=== PATIENT | female | born 1980 | race African-American/Black ===

== ENCOUNTER 2016-10-05 17:57 | Emergency (ER) | payer BC ==
[2016-10-05] MEDS ORDERED: KETOROLAC 30 MG/ML VIAL (J1885) As Ordered ONE (18:37)
[2016-10-05 19:12] LABS: BASO % 0.5 % (0.0-1.0); EOS # 0.2 K/mm3 (0.0-0.50); EOS % 3.2 % (0.0-3.0); LARGE UNSTAINED CELL # 0.1 K/mm3 (0.0-0.4); LARGE UNSTAINED CELL % 1.9 % (0.0-4.0); LYMPH # 2.5 K/mm3 (1.5-4.5); LYMPH % 33.5 % (24.0-44.0); MEAN CORPUSCULAR HEMOGLOBIN 27.2 pg (27.0-33.0); MEAN CORPUSCULAR HGB CONC 32.7 g/dl (32.0-36.5); MEAN CORPUSCULAR VOLUME 83.1 fl (80.0-96.0); MONO # 0.3 K/mm3 (0.0-0.8); MONO % 4.3 % (0.0-5.0); NEUTROPHILS # 4.3 K/mm3 (1.8-7.7); NEUTROPHILS % 56.5 % (36.0-66.0); PLATELET COUNT, AUTOMATED 278 k/mm3 (150-450); RED CELL DISTRIBUTION WIDTH 14.8 % (11.5-14.5); WHITE BLOOD COUNT 7.5 K/mm3 (4.0-10.0)
[2016-10-05 19:36] LABS: ALBUMIN 3.3 GM/DL (3.2-5.2); ALBUMIN/GLOBULIN RATIO 0.77 (1.00-1.93); ALKALINE PHOSPHATASE 108 U/L (45-117); ALT/SGPT 17 U/L (12-78); ANION GAP 10 MEQ/L (8-16); AST/SGOT 14 U/L (15-37); BILIRUBIN,DIRECT < 0.1 MG/DL (0.0-0.2); BILIRUBIN,TOTAL 0.2 MG/DL (0.2-1.0); BLOOD UREA NITROGEN 8 MG/DL (7-18); CALCIUM LEVEL 8.6 MG/DL (8.5-10.1); CARBON DIOXIDE LEVEL 25 MEQ/L (21-32); CHLORIDE LEVEL 108 MEQ/L (98-107); CREATININE FOR GFR 1.13 MG/DL (0.55-1.02); GLOMERULAR FILTRATION RATE > 60.0 (>60); GLUCOSE, FASTING 111 MG/DL (70-105); SODIUM LEVEL 143 MEQ/L (136-145); TOTAL PROTEIN 7.6 GM/DL (6.4-8.2)
[2016-10-05 19:36] LABS: MICROSCOPIC INDICATED? MAN YES (NO)
[2016-10-05 19:46] LABS: BACTERIA, URINE SMALL AMOUNT; HYALINE CAST, URINE NONE SEEN /lpf (0-1); MICROSCOPIC EXAM PERFORMED; RBC, URINE TNTC /hpf (0-3); SQUAMOUS EPITHELIAL CELL URINE SMALL AMOUNT /hpf (SMALL AMT)
[2016-10-05] MEDS ORDERED: diphenhydrAMINE INJ 50MG/ML VIAL (J1200) As Ordered ONE (20:26)
[2016-10-05] MEDS ORDERED: HYDROmorphone HCL 1 MG/ML SYRINGE (J1170) As Ordered ONE (20:26)
--- NOTE | 2016-10-05 20:30 | REPUSA ---
CLINICAL HISTORY: Vaginal bleeding. TECHNIQUE: High resolution examination consisting of transabdominal and transvaginal ultrasound perf ormed. FINDINGS: Uterine size: 8.0 x 4.6 x 4.6. AP endometrial thickness is 5.5 mm. Uterus is anteverted. Right ovary measures 4.0 x 2.5 x 3.1 cm. Left ovary measures 3.0 x 1.6 x 2.1 cm. No evidence of ovar ericka or adnexal mass. Trace free fluid is noted in cul-de-sac. IMPRESSION: No acute pathology. Thank you for your kind referral of this patient. We appreciate the opportunity to participate in thi s patient's care.
[2016-10-05] MEDS ORDERED: ONDANSETRON 4MG/2ML VIAL (J2405) As Ordered ONE (20:49)
--- NOTE | 2016-10-05 21:15 | EDDOCDS ---
Physician Documentation [facility] Name: Radha Sotelo Age: 36 yrs Sex: Female : 1980 Arrival Date: 10/05/2016 Time: 17:57 Bed I2 / M2 Private MD: NO PRIMARY PHYSICIAN, . Disposition: 10/05/16 20:54 Discharged to Home/Self Care. Impression: Abnormal uterine and vaginal bleeding, unspecified. - Condition is Stable. - Discharge Instructions: Abnormal Uterine Bleeding. - Prescriptions for Ibuprofen 800 mg Oral Tablet - take 1 tablet by ORAL route every 8 hours As needed take with food; 30 tablet. - Medication Reconciliation, Local Pharmacy Hours form. - Follow up: Emergency Department; When: As needed; Reason: Worsening of conditions. Follow up: Miladis Vasquez MD; When: Call to arrange an appointment; Reason: Wound/Symptom Recheck, Recheck today's complaints, Worsening of conditions, Continuance of care, To establish care. - Problem is new. - Symptoms have improved. Historical: - Allergies: no known allergies; - PMHx: latent TB; - PSHx: none; - Social history: Smoking status: Patient/guardian denies using No barriers to communication noted, The patient speaks fluent Ugandan. - Family history: Not pertinent. - : The pt / caregiver states he / she is not on anticoagulants. Unable to Verify Home Med List with the patient / caregiver. - Exposure Risk Screening:: None identified. 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 (160.02 cm) (R); Pain 10/10; 20:08 BP 107 / 63 LA Supine (auto/reg); cln 20:45 Pain 2/10; kmg1 21:06 BP 103 / 52 LA Supine (auto/reg); Pulse 85 MON; Resp 20 S; Temp 96.8(O); Pulse Ox 95% cln on R/A; Pain 10/10; 17:59 Body Mass Index 40.74 (104.33 kg, 160.02 cm) gr2 MDM: 18:26 NS 0.9% 1000 ml IV at bolus once ordered. cc10 18:26 ketorolac 30 mg IVP once ordered. cc10 18:26 IV Saline Lock ordered. cc10 18:26 Undress patient appropriately for examination ordered. cc10 18:26 UCG by Nursing ordered. cc10 18:27 Basic Metabolic Profile Ordered. EDMS 18:27 CBC with Diff Ordered. EDMS 18:27 Lipase Ordered. EDMS 18:27 Liver Profile Ordered. EDMS 18:27 Urine Culture Ordered. EDMS 18:27 -US Pelvic Non-Ob Complete Ordered. EDMS 18:27 DUPLEX SCAN LIMITED (DOPPLER)+US Ordered. EDMS 18:27 NOTHING BY MOUTH+DIET ordered. EDMS 18:29 Hcg, Serum Quantitative Ordered. EDMS 18:54 Financial registration complete. ks16 18:54 [facility] Payment Agreement was scanned into [employer] and attached to record. ks16 19:27 URINALYSIS MANUAL Ordered. EDMS 19:39 Basic Metabolic Profile Reviewed. cc10 19:39 CBC with Diff Reviewed. cc10 19:39 Liver Profile Reviewed. cc10 19:39 URINALYSIS MANUAL Reviewed. cc10 19:39 Lipase Reviewed. cc10 19:39 Hcg, Serum Quantitative Reviewed. cc10 19:51 Transvaginal NON- US Ordered. EDMS 20:17 Dilaudid - HYDROmorphone 0.5 mg IVP once ordered. cc10 20:17 diphenhydrAMINE 25 mg IVP once ordered. cc10 20:42 URINALYSIS MANUAL Reviewed. cc10 20:42 MICROSCOPIC, URINE Reviewed. cc10 20:46 Ondansetron 4 mg IVP once ordered. cc10 Point of Care Testing: Urine : 18:47 hCG Reading: Negative; Control Reading: Positive; jmv Ranges: Administered Medications: 18:56 Drug: NS 0.9% 1000 ml [sodium chloride 0.9 % intravenous solution] Route: IV; Rate: jo3 bolus; Site: right hand; 18:56 Drug: ketorolac 30 mg [ketorolac 30 mg/mL (1 mL) injection solution (1 mL)] Route: IVP; jo3 Site: right hand; 20:07 Follow up: Response: Pain is decreased jo3 20:33 Drug: Dilaudid - HYDROmorphone 0.5 mg [hydromorphone 1 mg/mL injection syringe (0.5 kmg1 mL)] Route: IVP; Site: left hand; 20:45 Follow up: Pain 2/10 Adult; Response: Pain is decreased [facility] [place] [place] 20:33 Drug: diphenhydrAMINE 25 mg [diphenhydramine 50 mg/mL injection solution (0.5 mL)] [facility] [place] Route: IVP; Site: left hand; 20:51 Drug: Ondansetron 4 mg [ondansetron HCl 2 mg/mL intravenous solution (2 mL)] Route: kmg1 IVP; Site: right hand; 21:13 Follow up: Response: Nausea is decreased [facility] Signatures: Dispatcher [employer] EDMS Ana Villarreal RN RN kmg1 Deanne Palmer RN RN dls Naomie Napier RN RN jo3 Jamal Glover, PA-C PA-C cc10 Vanita Orosco, Reg Reg ks16 The chart was reviewed and I authenticate all verbal orders and agree with the evaluation and treatment provided.Corrections: (The following items were deleted from the chart) 19:27 18:27 URINALYSIS+LAB ordered. EDMS EDMS Attachments: 18:54 [facility] Payment Agreement [email or web address] MTDD
--- NOTE | 2016-10-05 21:16 | EDDOCDS ---
Nurse's Notes [facility] Name: Radha Sotelo Age: 36 yrs Sex: Female : 1980 Arrival Date: 10/05/2016 Time: 17:57 Bed I2 / M2 Private MD: NO PRIMARY PHYSICIAN, . Diagnosis: Abnormal uterine and vaginal bleeding, unspecified Presentation: 10/05 18:06 Presenting complaint: Patient states: Pt presents with c/o 2nd period this month heavy dls vaginal bleeding with clots feels dizzy having a lot of abdominal pain. Risk factors: The patient reports no loss of conciousness prior to arrival. This patient has not had a hysterectomy. This patient has not begun menopause. Adult Sepsis Screening: The patient does not have new or worsening altered mentation. Patient's respiratory rate is less than 22. Systolic blood pressure is greater than 100. Patient has a qSOFA score of 0- Negative Sepsis Screen. Suicide/Homicide risk assessment- the patient denies having any suicidal and/or homicidal ideations and does not present with any other emotional, behavioral or mental health complaints. Status: Patient is not a account manager forest service or dependent. Transition of care: patient was not received from another setting of care. 18:06 Acuity: CASSIE Level 3 dls 18:06 Method Of Arrival: Wheelchair dls Triage Assessment: 18:09 General: Appears uncomfortable, well developed, Behavior is cooperative. Pain: Pain dls currently is 10 out of 10 on a pain scale. HIV screening NA for this visit Offered previously. : Reports vaginal bleeding that is bright red with clots heavy flow. 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 - Family history: Not pertinent. - : The pt / caregiver states he / she is not on anticoagulants. Unable to Verify Home Med List with the patient / caregiver. - Exposure Risk Screening:: None identified. Screenin:57 Screening information is obtained from the patient. Fall risk: No risks identified. jo3 Assistance ADL's: requires no assistance with activities of daily living. Abuse/DV Screen: The patient / caregiver reports he/she is: not in a situation that causes fear, pain or injury. Nutritional screening: No deficits noted. Advance Directives: There is no active DNR order. home support is adequate. Assessment: 18:57 General: Appears uncomfortable, Behavior is appropriate for age, cooperative. jo3 Neurological: Level of Consciousness is awake, alert, Oriented to person, place, time, Reports dizziness. EENT: No deficits noted. Cardiovascular: No deficits noted. Respiratory: Airway is patent Respiratory effort is even, unlabored. GI: Abdomen is obese, Bowel sounds present X 4 quads. Abd is soft X 4 quads Abd is tender to palpation in suprapubic area, right lower quadrant and left lower quadrant Reports cramping. : Urine is blood tinged, Reports vaginal bleeding that is with clots heavy flow. Derm: Skin is intact, Skin is dry, Skin is normal, Skin temperature is warm. 19:30 Reassessment: Pt taken to ultrasound at this time . jo3 19:30 Cardiovascular: No deficits noted. jo3 20:08 General: Pt reports that pain is decreased at this time. Awaiting results. Aware of jo3 plan of care . General: Appears in no apparent distress, comfortable, Behavior is appropriate for age, cooperative, pleasant. Neurological: No deficits noted. Level of Consciousness is awake, alert, Oriented to person, place, time. Respiratory: Airway is patent Respiratory effort is even, unlabored. 20:34 Pain: Pain currently is 10 out of 10 on a pain scale. kmg1 21:10 Reassessment: Patient appears in no apparent distress at this time. Patient states kmg1 feeling better. Patient states symptoms have improved. Vital Signs: 17:59 BP 151 / 115; Pulse 108; Resp 20 S; Temp 97.8(O); Pulse Ox 100% on R/A; Weight 104.33 gr2 kg (R); Height 63 in. (160.02 cm) (R); Pain 10/10; 20:08 BP 107 / 63 LA Supine (auto/reg); cln 20:45 Pain 2/10; kmg1 21:06 BP 103 / 52 LA Supine (auto/reg); Pulse 85 MON; Resp 20 S; Temp 96.8(O); Pulse Ox 95% cln on R/A; Pain 10/10; 17:59 Body Mass Index 40.74 (104.33 kg, 160.02 cm) gr2 Vitals: 17:59 Log In Time: October 05, 2016 at 17:59. gr2 ED Course: 17:59 Patient visited by Cary Lee. gr2 17:59 NO PRIMARY PHYSICIAN, . is Private Physician. gr2 17:59 Patient moved to Waiting gr2 18:00 Patient visited by Cary Lee. gr2 18:01 Jamal Glover PA-C is PHCP. cc10 18:01 Brisa Barbosa MD is Attending Physician. cc10 18:01 Patient moved to Pre RCE gr2 18:05 Patient moved to Triage 1 dem1 18:06 Patient visited by Jamal Glover PA-C. cc10 18:06 Patient visited by Jamal Glover PA-C. cc10 18:08 Triage Initiated dls 18:24 Patient moved to I2 / M2 js13 18:35 Patient moved to Ultrasound br3 18:44 Patient moved to I2 / M2 br3 18:48 Patient visited by Surya Harris PCA. [facility] 18:54 [facility] Payment Agreement was scanned into [employer] and attached to record. ks16 18:56 Hcg, Serum Quantitative Sent. jo3 18:56 Basic Metabolic Profile Sent. jo3 18:56 CBC with Diff Sent. jo3 18:56 Lipase Sent. jo3 18:56 Liver Profile Sent. jo3 18:57 The patient / caregiver is instructed regarding the plan of care and ED course. jo3 18:57 Inserted saline lock: 20 gauge in right hand. Labs drawn. (by ED staff). Sent per order jo3 to lab. 19:00 Patient visited by Naomie Napier RN. jo3 20:02 Patient visited by Naomie Napier,ROMINA. jo3 20:06 Patient visited by Naomie Napier,ROMINA. jo3 20:08 Patient visited by Di Hernandez PCA. cln 20:10 Patient visited by Naomie Napier,ROMINA. jo3 20:34 Patient visited by Ana Villarreal, ROMINA. kmg1 20:44 -US Pelvic Non-Ob Complete Returned. EDMS 20:54 Miladis Vasquez MD is Referral Physician. cc10 21:07 Patient visited by Hernandez, Crystal, DEMOLITION SPECIALIST. cln 21:10 Discontinued lock bleeding controlled, pressure dressing applied, No redness/swelling km at site. 21:15 Patient visited by Ana Villarreal RN. [facility] 21:15 No procedures done that require assistance. [facility] Administered Medications: 18:56 Drug: NS 0.9% 1000 ml [sodium chloride 0.9 % intravenous solution] Route: IV; Rate: jo3 bolus; Site: right hand; 18:56 Drug: ketorolac 30 mg [ketorolac 30 mg/mL (1 mL) injection solution (1 mL)] Route: IVP; jo3 Site: right hand; 20:07 Follow up: Response: Pain is decreased jo3 20:33 Drug: Dilaudid - HYDROmorphone 0.5 mg [hydromorphone 1 mg/mL injection syringe (0.5 kmg1 mL)] Route: IVP; Site: left hand; 20:45 Follow up: Pain 2/10 Adult; Response: Pain is decreased [facility] 20:33 Drug: diphenhydrAMINE 25 mg [diphenhydramine 50 mg/mL injection solution (0.5 mL)] [facility] Route: IVP; Site: left hand; 20:51 Drug: Ondansetron 4 mg [ondansetron HCl 2 mg/mL intravenous solution (2 mL)] Route: kmg1 IVP; Site: right hand; 21:13 Follow up: Response: Nausea is decreased [facility] Point of Care Testing: Urine : 18:47 hCG Reading: Negative; Control Reading: Positive; v Ranges: Order Results: Lab Order: Basic Metabolic Profile; SPEC'M 10/05/16 18:38 Test: GLUCOSE, FASTING; Value: 111; Range: 70-105; Abnormal: Above high normal; Units: MG/DL; Status: F Test: BLOOD UREA NITROGEN; Value: 8; Range: 7-18; Units: MG/DL; Status: F Test: CREATININE FOR GFR; Value: 1.13; Range: 0.55-1.02; Abnormal: Above high normal; Units: MG/DL; Status: F Test: GLOMERULAR FILTRATION RATE; Value: > 60.0; Range: >60; Status: F Test: SODIUM LEVEL; Value: 143; Range: 136-145; Units: MEQ/L; Status: F Test: POTASSIUM SERUM; Value: 4.0; Range: 3.5-5.1; Units: MEQ/L; Status: F Test: CHLORIDE LEVEL; Value: 108; Range: 98-107; Abnormal: Above high normal; Units: MEQ/L; Status: F Test: CARBON DIOXIDE LEVEL; Value: 25; Range: 21-32; Units: MEQ/L; Status: F Test: ANION GAP; Value: 10; Range: 8-16; Units: MEQ/L; Status: F Test: CALCIUM LEVEL; Value: 8.6; Range: 8.5-10.1; Units: MG/DL; Status: F Test Note: ; Units are mL/min/1.73 m2 Chronic Kidney Disease Staging per NKF: Stage I & II GFR >=60 Normal to Mildly Decreased Stage III GFR 30-59 Moderately Decreased Stage IV GFR 15-29 Severely Decreased Stage V GFR <15 Very Little GFR Left ESRD GFR <15 on BEEHIVE KILN SUPERVISOR Lab Order: CBC with Diff; SPEC'M 10/05/16 18:38 Test: WHITE BLOOD COUNT; Value: 7.5; Range: 4.0-10.0; Units: K/mm3; Status: F Test: RED BLOOD COUNT; Value: 3.94; Range: 4.00-5.40; Abnormal: Below low normal; Units: M/mm3; Status: F Test: HEMOGLOBIN; Value: 10.7; Range: 12.0-16.0; Abnormal: Below low normal; Units: g/dl; Status: F Test: HEMATOCRIT; Value: 32.7; Range: 36.0-47.0; Abnormal: Below low normal; Units: %; Status: F Test: MEAN CORPUSCULAR VOLUME; Value: 83.1; Range: 80.0-96.0; Units: fl; Status: F Test: MEAN CORPUSCULAR HEMOGLOBIN; Value: 27.2; Range: 27.0-33.0; Units: pg; Status: F Test: MEAN CORPUSCULAR HGB CONC; Value: 32.7; Range: 32.0-36.5; Units: g/dl; Status: F Test: RED CELL DISTRIBUTION WIDTH; Value: 14.8; Range: 11.5-14.5; Abnormal: Above high normal; Units: %; Status: F Test: PLATELET COUNT, AUTOMATED; Value: 278; Range: 150-450; Units: k/mm3; Status: F Test: NEUTROPHILS %; Value: 56.5; Range: 36.0-66.0; Units: %; Status: F Test: LYMPH %; Value: 33.5; Range: 24.0-44.0; Units: %; Status: F Test: MONO %; Value: 4.3; Range: 0.0-5.0; Units: %; Status: F Test: EOS %; Value: 3.2; Range: 0.0-3.0; Abnormal: Above high normal; Units: %; Status: F Test: BASO %; Value: 0.5; Range: 0.0-1.0; Units: %; Status: F Test: LARGE UNSTAINED CELL %; Value: 1.9; Range: 0.0-4.0; Units: %; Status: F Test: NEUTROPHILS #; Value: 4.3; Range: 1.8-7.7; Units: K/mm3; Status: F Test: LYMPH #; Value: 2.5; Range: 1.5-4.5; Units: K/mm3; Status: F Test: MONO #; Value: 0.3; Range: 0.0-0.8; Units: K/mm3; Status: F Test: EOS #; Value: 0.2; Range: 0.0-0.50; Units: K/mm3; Status: F Test: BASO #; Value: 0.0; Range: 0.0-0.2; Units: K/mm3; Status: F Test: LARGE UNSTAINED CELL #; Value: 0.1; Range: 0.0-0.4; Units: K/mm3; Status: F Lab Order: Lipase; SPEC'M 10/05/16 18:38 Test: LIPASE; Value: 79; Range: 73-393; Units: U/L; Status: F Lab Order: Liver Profile; SPEC'M 10/05/16 18:38 Test: AST/SGOT; Value: 14; Range: 15-37; Abnormal: Below low normal; Units: U/L; Status: F Test: ALT/SGPT; Value: 17; Range: 12-78; Units: U/L; Status: F Test: ALKALINE PHOSPHATASE; Value: 108; Range: 45-117; Units: U/L; Status: F Test: BILIRUBIN,TOTAL; Value: 0.2; Range: 0.2-1.0; Units: MG/DL; Status: F Test: BILIRUBIN,DIRECT; Value: < 0.1; Range: 0.0-0.2; Units: MG/DL; Status: F Test: TOTAL PROTEIN; Value: 7.6; Range: 6.4-8.2; Units: GM/DL; Status: F Test: ALBUMIN; Value: 3.3; Range: 3.2-5.2; Units: GM/DL; Status: F Test: ALBUMIN/GLOBULIN RATIO; Value: 0.77; Range: 1.00-1.93; Abnormal: Below low normal; Status: F Lab Order: Hcg, Serum Quantitative; SPEC'M 10/05/16 18:38 Test: HCG, SERUM QUANTITATIVE; Value: < 1.0; Units: MIU/ML; Status: F Test Note: ; GESTATIONAL AGE APPROXIMATE HCG RANGE (MIU/ML) 0.2-1 WEEK 5-50 1-2 WEEKS 50-500 2-3 WEEKS 100-5,000 3-4 WEEKS 500-10,000 4-5 WEEKS 1,000-50,000 5-6 WEEKS 10,000-100,000 6-8 WEEKS 15,000-200,000 2-3 MONTHS 10,000-100,000 NON FEMALES LESS THAN 3.0 Patient samples may contain human heterophilic antibodies that could react with immunoassays to give falsely elevated or depressed results. This assay has been designed to minimize interference from heterophilic antibodies. Elevated hCG levels have also been associated with trophoblastic disease and nontrophoblastic neoplasms. The possibility of having these diseases should be considered before a diagnosis of is made. This test is not intended for use as a surrogate marker for aiding in the diagnosis or monitoring the treatment of cancer patients. [employer] methodology. Lab Order: URINALYSIS MANUAL; SPEC'M 10/05/16 19:17 Test: APPEARANCE, URINE MANUAL; Value: TURBID; Range: CLEAR; Abnormal: Above high normal; Status: F Test: COLOR, URINE MANUAL; Value: RED; Range: YELLOW; Abnormal: Above high normal; Status: F Test: PH,URINE MAN; Value: 6.0; Range: 5.0 - 9.0; Units: UNITS; Status: F Test: SPECIFIC GRAVITY,URINE MANUAL; Value: 1.015; Range: 1.002-1.035; Status: F Test: PROTEIN, URINE MANUAL; Value: 2+; Range: NEGATIVE; Abnormal: Above high normal; Units: mg/dL; Status: F Test: GLUCOSE, URINE (UA) MANUAL; Value: NEGATIVE; Range: NEGATIVE; Units: mg/dL; Status: F Test: KETONE, URINE MANUAL; Value: NEGATIVE; Range: NEGATIVE; Units: mg/dL; Status: F Test: UROBILINOGEN, URINE MANUAL; Value: NORMAL; Range: NORMAL; Units: mg/dl; Status: F Test: BILIRUBIN, URINE MANUAL; Value: NEGATIVE; Range: NEGATIVE; Status: F Test: NITRITE, URINE MANUAL; Value: NEGATIVE; Range: NEGATIVE; Status: F Test: LEUKOCYTE ESTERASE, URINE MAN; Value: POSITIVE; Range: NEGATIVE; Abnormal: Above high normal; Status: F Test: BLOOD URINE MANUAL; Value: POSITIVE; Range: NEGATIVE; Abnormal: Above high normal; Status: F Lab Order: MICROSCOPIC, URINE; SPEC'M 10/05/16 19:17 Test: WBC, URINE; Value: 5-7; Range: 0-3; Abnormal: Above high normal; Units: /hpf; Status: F Test: RBC, URINE; Value: TNTC; Range: 0-3; Abnormal: Above high normal; Units: /hpf; Status: F Test: SQUAMOUS EPITHELIAL CELL URINE; Value: SMALL AMOUNT; Range: SMALL AMT; Units: /hpf; Status: F Test: BACTERIA, URINE; Value: SMALL AMOUNT; Range: NONE; Abnormal: Above high normal; Status: F Test: HYALINE CAST, URINE; Value: NONE SEEN; Range: 0-1; Units: /lpf; Status: F Test: MICROSCOPIC EXAM; Value: PERFORMED; Status: F Radiology Order: -US Pelvic Non-Ob Complete Test: -US Pelvic Non-Ob Complete REASON FOR EXAMINATION: Vaginal Bleeding - Nn-; ; CLINICAL HISTORY: Vaginal bleeding.; ; TECHNIQUE: High resolution examination consisting of transabdominal and transvaginal ultrasound perf; ormed.; ; FINDINGS:; Uterine size: 8.0 x 4.6 x 4.6. AP endometrial thickness is 5.5 mm. Uterus is anteverted.; ; Right ovary measures 4.0 x 2.5 x 3.1 cm. Left ovary measures 3.0 x 1.6 x 2.1 cm. No evidence of ovar; ericka or adnexal mass.; ; Trace free fluid is noted in cul-de-sac.; ; IMPRESSION:; No acute pathology.; ; ; Thank you for your kind referral of this patient. We appreciate the opportunity to participate in thi; s patient's care.; ; Outcome: 20:54 Discharge ordered by Provider. cc10 21:10 Discharge Assessment: Patient awake, alert and oriented x 3. No cognitive and/or kmg1 functional deficits noted. Patient verbalized understanding of disposition instructions. patient administered narcotics - yes. Pt provided with safe discharge. The following High Risk Discharge criteria are identified: None. Discharged to home ambulatory, with friend. Condition: stable. Discharge instructions given to patient, friend, Instructed on discharge instructions, follow up and referral plans. medication usage, Demonstrated understanding of instructions, medications, Pt was receptive of discharge instructions/ teaching. Prescriptions given X 1. Ultrasound Study completed. Property sent home with patient. 21:15 Patient left the ED. kmg1 Signatures: Dispatcher [employer] EDMS Ana Villarreal RN RN kmg1 Deanne Plamer RN RN dls Helmerci, Jennifer, RN RN jo3 Susan Lee3 Jian Spencer1 Naomie Olivarez,ROMINA RN js13 Cary Lee2 Jamal Glover, PA-Stew PA-C cc10 Vanita Orosco, Reg Reg ks16 Di Hernandez, DEMOLITION SPECIALIST DEMOLITION SPECIALIST Surya Duffy, DEMOLITION SPECIALIST DEMOLITION SPECIALIST jmv Corrections: (The following items were deleted from the chart) 20:09 19:58 Reassessment: Pt taken to ultrasound at this time . jo3 jo3 20:10 20:08 General: Appears in no apparent distress, comfortable, Behavior is appropriate jo3 for age, cooperative, pleasant, jo3 20:10 19:30 Neurological: No deficits noted. Level of Consciousness is awake, alert, Oriented jo3 to person, place, time, jo3 : 19:30 Respiratory: Airway is patent Respiratory effort is even, unlabored, jo3 jo3 : 19:30 General: Pt reports that pain is decreased at this time. Awaiting results. Aware jo3 of plan of care . jo3 MTDD
--- NOTE | 2016-10-08 11:46 | EDDOCDS ---
Nurse's Notes [facility] Name: Radha Sotelo Age: 36 yrs Sex: Female : 1980 Arrival Date: 10/05/2016 Time: 17:57 Bed I2 / M2 Private MD: NO PRIMARY PHYSICIAN, . Diagnosis: Abnormal uterine and vaginal bleeding, unspecified Presentation: 10/05 18:06 Presenting complaint: Patient states: Pt presents with c/o 2nd period this month heavy dls vaginal bleeding with clots feels dizzy having a lot of abdominal pain. Risk factors: The patient reports no loss of conciousness prior to arrival. This patient has not had a hysterectomy. This patient has not begun menopause. Adult Sepsis Screening: The patient does not have new or worsening altered mentation. Patient's respiratory rate is less than 22. Systolic blood pressure is greater than 100. Patient has a qSOFA score of 0- Negative Sepsis Screen. Suicide/Homicide risk assessment- the patient denies having any suicidal and/or homicidal ideations and does not present with any other emotional, behavioral or mental health complaints. Status: Patient is not a service administrator or dependent. Transition of care: patient was not received from another setting of care. 18:06 Acuity: CASSIE Level 3 dls 18:06 Method Of Arrival: Wheelchair dls Triage Assessment: 18:09 General: Appears uncomfortable, well developed, Behavior is cooperative. Pain: Pain dls currently is 10 out of 10 on a pain scale. HIV screening NA for this visit Offered previously. : Reports vaginal bleeding that is bright red with clots heavy flow. 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 - Family history: Not pertinent. - : The pt / caregiver states he / she is not on anticoagulants. Unable to Verify Home Med List with the patient / caregiver. - Exposure Risk Screening:: None identified. Screenin:57 Screening information is obtained from the patient. Fall risk: No risks identified. jo3 Assistance ADL's: requires no assistance with activities of daily living. Abuse/DV Screen: The patient / caregiver reports he/she is: not in a situation that causes fear, pain or injury. Nutritional screening: No deficits noted. Advance Directives: There is no active DNR order. home support is adequate. Assessment: 18:57 General: Appears uncomfortable, Behavior is appropriate for age, cooperative. jo3 Neurological: Level of Consciousness is awake, alert, Oriented to person, place, time, Reports dizziness. EENT: No deficits noted. Cardiovascular: No deficits noted. Respiratory: Airway is patent Respiratory effort is even, unlabored. GI: Abdomen is obese, Bowel sounds present X 4 quads. Abd is soft X 4 quads Abd is tender to palpation in suprapubic area, right lower quadrant and left lower quadrant Reports cramping. : Urine is blood tinged, Reports vaginal bleeding that is with clots heavy flow. Derm: Skin is intact, Skin is dry, Skin is normal, Skin temperature is warm. 19:30 Reassessment: Pt taken to ultrasound at this time . jo3 19:30 Cardiovascular: No deficits noted. jo3 20:08 General: Pt reports that pain is decreased at this time. Awaiting results. Aware of jo3 plan of care . General: Appears in no apparent distress, comfortable, Behavior is appropriate for age, cooperative, pleasant. Neurological: No deficits noted. Level of Consciousness is awake, alert, Oriented to person, place, time. Respiratory: Airway is patent Respiratory effort is even, unlabored. 20:34 Pain: Pain currently is 10 out of 10 on a pain scale. kmg1 21:10 Reassessment: Patient appears in no apparent distress at this time. Patient states kmg1 feeling better. Patient states symptoms have improved. Vital Signs: 17:59 BP 151 / 115; Pulse 108; Resp 20 S; Temp 97.8(O); Pulse Ox 100% on R/A; Weight 104.33 gr2 kg (R); Height 63 in. (160.02 cm) (R); Pain 10/10; 20:08 BP 107 / 63 LA Supine (auto/reg); cln 20:45 Pain 2/10; kmg1 21:06 BP 103 / 52 LA Supine (auto/reg); Pulse 85 MON; Resp 20 S; Temp 96.8(O); Pulse Ox 95% cln on R/A; Pain 10/10; 17:59 Body Mass Index 40.74 (104.33 kg, 160.02 cm) gr2 Vitals: 17:59 Log In Time: October 05, 2016 at 17:59. gr2 ED Course: 17:59 Patient visited by Cary Lee. gr2 17:59 NO PRIMARY PHYSICIAN, . is Private Physician. gr2 17:59 Patient moved to Waiting gr2 18:00 Patient visited by Cary Lee. gr2 18:01 Jamal Glover PA-C is PHCP. cc10 18:01 Brisa Barbosa MD is Attending Physician. cc10 18:01 Patient moved to Pre RCE gr2 18:05 Patient moved to Triage 1 dem1 18:06 Patient visited by Jamal Glover PA-C. cc10 18:06 Patient visited by Jamal Glover PA-C. cc10 18:08 Triage Initiated dls 18:24 Patient moved to I2 / M2 js13 18:35 Patient moved to Ultrasound br3 18:44 Patient moved to I2 / M2 br3 18:48 Patient visited by Surya Harris PCA. [facility] 18:54 [facility] Payment Agreement was scanned into [employer] and attached to record. ks16 18:56 Hcg, Serum Quantitative Sent. jo3 18:56 Basic Metabolic Profile Sent. jo3 18:56 CBC with Diff Sent. jo3 18:56 Lipase Sent. jo3 18:56 Liver Profile Sent. jo3 18:57 The patient / caregiver is instructed regarding the plan of care and ED course. jo3 18:57 Inserted saline lock: 20 gauge in right hand. Labs drawn. (by ED staff). Sent per order jo3 to lab. 19:00 Patient visited by Naomie Napier RN. jo3 20:02 Patient visited by Naomie Napier,ROMINA. jo3 20:06 Patient visited by Naoime Napier,ROMINA. jo3 20:08 Patient visited by Di Hernandez PCA. cln 20:10 Patient visited by Namoie Napier,ROMINA. jo3 20:34 Patient visited by Ana Villarreal, ROMINA. kmg1 20:44 -US Pelvic Non-Ob Complete Returned. EDMS 20:54 Miladis Vasquez MD is Referral Physician. cc10 21:07 Patient visited by Hernandez, Crystal, SPORTING GOODS SALES ASSOCIATE. cln 21:10 Discontinued lock bleeding controlled, pressure dressing applied, No redness/swelling [facility] at site. 21:15 Patient visited by Ana Villarreal RN. [facility] 21:15 No procedures done that require assistance. [facility] 10/06 08:49 T-Sheet-- Draft Copy was scanned into [employer] and attached to record. [facility] Administered Medications: 10/05 18:56 Drug: NS 0.9% 1000 ml [sodium chloride 0.9 % intravenous solution] Route: IV; Rate: jo3 bolus; Site: right hand; 18:56 Drug: ketorolac 30 mg [ketorolac 30 mg/mL (1 mL) injection solution (1 mL)] Route: IVP; jo3 Site: right hand; 20:07 Follow up: Response: Pain is decreased 3 20:33 Drug: Dilaudid - HYDROmorphone 0.5 mg [hydromorphone 1 mg/mL injection syringe (0.5 kmg1 mL)] Route: IVP; Site: left hand; 20:45 Follow up: Pain 2/10 Adult; Response: Pain is decreased [facility] 20:33 Drug: diphenhydrAMINE 25 mg [diphenhydramine 50 mg/mL injection solution (0.5 mL)] [facility] Route: IVP; Site: left hand; 20:51 Drug: Ondansetron 4 mg [ondansetron HCl 2 mg/mL intravenous solution (2 mL)] Route: kmg1 IVP; Site: right hand; 21:13 Follow up: Response: Nausea is decreased [facility] Point of Care Testing: Urine : 18:47 hCG Reading: Negative; Control Reading: Positive; jmv Ranges: Order Results: Lab Order: Basic Metabolic Profile; SPEC'M 10/05/16 18:38 Test: GLUCOSE, FASTING; Value: 111; Range: 70-105; Abnormal: Above high normal; Units: MG/DL; Status: F Test: BLOOD UREA NITROGEN; Value: 8; Range: 7-18; Units: MG/DL; Status: F Test: CREATININE FOR GFR; Value: 1.13; Range: 0.55-1.02; Abnormal: Above high normal; Units: MG/DL; Status: F Test: GLOMERULAR FILTRATION RATE; Value: > 60.0; Range: >60; Status: F Test: SODIUM LEVEL; Value: 143; Range: 136-145; Units: MEQ/L; Status: F Test: POTASSIUM SERUM; Value: 4.0; Range: 3.5-5.1; Units: MEQ/L; Status: F Test: CHLORIDE LEVEL; Value: 108; Range: 98-107; Abnormal: Above high normal; Units: MEQ/L; Status: F Test: CARBON DIOXIDE LEVEL; Value: 25; Range: 21-32; Units: MEQ/L; Status: F Test: ANION GAP; Value: 10; Range: 8-16; Units: MEQ/L; Status: F Test: CALCIUM LEVEL; Value: 8.6; Range: 8.5-10.1; Units: MG/DL; Status: F Test Note: ; Units are mL/min/1.73 m2 Chronic Kidney Disease Staging per NKF: Stage I & II GFR >=60 Normal to Mildly Decreased Stage III GFR 30-59 Moderately Decreased Stage IV GFR 15-29 Severely Decreased Stage V GFR <15 Very Little GFR Left ESRD GFR <[address] MANAGER Lab Order: CBC with Diff; SPEC'M 10/05/16 18:38 Test: WHITE BLOOD COUNT; Value: 7.5; Range: 4.0-10.0; Units: K/mm3; Status: F Test: RED BLOOD COUNT; Value: 3.94; Range: 4.00-5.40; Abnormal: Below low normal; Units: M/mm3; Status: F Test: HEMOGLOBIN; Value: 10.7; Range: 12.0-16.0; Abnormal: Below low normal; Units: g/dl; Status: F Test: HEMATOCRIT; Value: 32.7; Range: 36.0-47.0; Abnormal: Below low normal; Units: %; Status: F Test: MEAN CORPUSCULAR VOLUME; Value: 83.1; Range: 80.0-96.0; Units: fl; Status: F Test: MEAN CORPUSCULAR HEMOGLOBIN; Value: 27.2; Range: 27.0-33.0; Units: pg; Status: F Test: MEAN CORPUSCULAR HGB CONC; Value: 32.7; Range: 32.0-36.5; Units: g/dl; Status: F Test: RED CELL DISTRIBUTION WIDTH; Value: 14.8; Range: 11.5-14.5; Abnormal: Above high normal; Units: %; Status: F Test: PLATELET COUNT, AUTOMATED; Value: 278; Range: 150-450; Units: k/mm3; Status: F Test: NEUTROPHILS %; Value: 56.5; Range: 36.0-66.0; Units: %; Status: F Test: LYMPH %; Value: 33.5; Range: 24.0-44.0; Units: %; Status: F Test: MONO %; Value: 4.3; Range: 0.0-5.0; Units: %; Status: F Test: EOS %; Value: 3.2; Range: 0.0-3.0; Abnormal: Above high normal; Units: %; Status: F Test: BASO %; Value: 0.5; Range: 0.0-1.0; Units: %; Status: F Test: LARGE UNSTAINED CELL %; Value: 1.9; Range: 0.0-4.0; Units: %; Status: F Test: NEUTROPHILS #; Value: 4.3; Range: 1.8-7.7; Units: K/mm3; Status: F Test: LYMPH #; Value: 2.5; Range: 1.5-4.5; Units: K/mm3; Status: F Test: MONO #; Value: 0.3; Range: 0.0-0.8; Units: K/mm3; Status: F Test: EOS #; Value: 0.2; Range: 0.0-0.50; Units: K/mm3; Status: F Test: BASO #; Value: 0.0; Range: 0.0-0.2; Units: K/mm3; Status: F Test: LARGE UNSTAINED CELL #; Value: 0.1; Range: 0.0-0.4; Units: K/mm3; Status: F Lab Order: Lipase; SPEC'M 10/05/16 18:38 Test: LIPASE; Value: 79; Range: 73-393; Units: U/L; Status: F Lab Order: Liver Profile; SPEC'M 10/05/16 18:38 Test: AST/SGOT; Value: 14; Range: 15-37; Abnormal: Below low normal; Units: U/L; Status: F Test: ALT/SGPT; Value: 17; Range: 12-78; Units: U/L; Status: F Test: ALKALINE PHOSPHATASE; Value: 108; Range: 45-117; Units: U/L; Status: F Test: BILIRUBIN,TOTAL; Value: 0.2; Range: 0.2-1.0; Units: MG/DL; Status: F Test: BILIRUBIN,DIRECT; Value: < 0.1; Range: 0.0-0.2; Units: MG/DL; Status: F Test: TOTAL PROTEIN; Value: 7.6; Range: 6.4-8.2; Units: GM/DL; Status: F Test: ALBUMIN; Value: 3.3; Range: 3.2-5.2; Units: GM/DL; Status: F Test: ALBUMIN/GLOBULIN RATIO; Value: 0.77; Range: 1.00-1.93; Abnormal: Below low normal; Status: F Lab Order: Urine Culture; SPEC'M 10/05/16 19:17 Test: URINE CULTURE; Value: URINE CULTURE RESULT NO GROWTH CLINICAL SIGNIFICANCE 1 ORGANISM; Status: F Lab Order: Hcg, Serum Quantitative; SPEC'M 10/05/16 18:38 Test: HCG, SERUM QUANTITATIVE; Value: < 1.0; Units: MIU/ML; Status: F Test Note: ; GESTATIONAL AGE APPROXIMATE HCG RANGE (MIU/ML) 0.2-1 WEEK 5-50 1-2 WEEKS 50-500 2-3 WEEKS 100-5,000 3-4 WEEKS 500-10,000 4-5 WEEKS 1,000-50,000 5-6 WEEKS 10,000-100,000 6-8 WEEKS 15,000-200,000 2-3 MONTHS 10,000-100,000 NON FEMALES LESS THAN 3.0 Patient samples may contain human heterophilic antibodies that could react with immunoassays to give falsely elevated or depressed results. This assay has been designed to minimize interference from heterophilic antibodies. Elevated hCG levels have also been associated with trophoblastic disease and nontrophoblastic neoplasms. The possibility of having these diseases should be considered before a diagnosis of is made. This test is not intended for use as a surrogate marker for aiding in the diagnosis or monitoring the treatment of cancer patients. Gemmyo methodology. Lab Order: URINALYSIS MANUAL; SPEC'M 10/05/16 19:17 Test: APPEARANCE, URINE MANUAL; Value: TURBID; Range: CLEAR; Abnormal: Above high normal; Status: F Test: COLOR, URINE MANUAL; Value: RED; Range: YELLOW; Abnormal: Above high normal; Status: F Test: PH,URINE MAN; Value: 6.0; Range: 5.0 - 9.0; Units: UNITS; Status: F Test: SPECIFIC GRAVITY,URINE MANUAL; Value: 1.015; Range: 1.002-1.035; Status: F Test: PROTEIN, URINE MANUAL; Value: 2+; Range: NEGATIVE; Abnormal: Above high normal; Units: mg/dL; Status: F Test: GLUCOSE, URINE (UA) MANUAL; Value: NEGATIVE; Range: NEGATIVE; Units: mg/dL; Status: F Test: KETONE, URINE MANUAL; Value: NEGATIVE; Range: NEGATIVE; Units: mg/dL; Status: F Test: UROBILINOGEN, URINE MANUAL; Value: NORMAL; Range: NORMAL; Units: mg/dl; Status: F Test: BILIRUBIN, URINE MANUAL; Value: NEGATIVE; Range: NEGATIVE; Status: F Test: NITRITE, URINE MANUAL; Value: NEGATIVE; Range: NEGATIVE; Status: F Test: LEUKOCYTE ESTERASE, URINE MAN; Value: POSITIVE; Range: NEGATIVE; Abnormal: Above high normal; Status: F Test: BLOOD URINE MANUAL; Value: POSITIVE; Range: NEGATIVE; Abnormal: Above high normal; Status: F Lab Order: MICROSCOPIC, URINE; SPEC'M 10/05/16 19:17 Test: WBC, URINE; Value: 5-7; Range: 0-3; Abnormal: Above high normal; Units: /hpf; Status: F Test: RBC, URINE; Value: TNTC; Range: 0-3; Abnormal: Above high normal; Units: /hpf; Status: F Test: SQUAMOUS EPITHELIAL CELL URINE; Value: SMALL AMOUNT; Range: SMALL AMT; Units: /hpf; Status: F Test: BACTERIA, URINE; Value: SMALL AMOUNT; Range: NONE; Abnormal: Above high normal; Status: F Test: HYALINE CAST, URINE; Value: NONE SEEN; Range: 0-1; Units: /lpf; Status: F Test: MICROSCOPIC EXAM; Value: PERFORMED; Status: F Radiology Order: -US Pelvic Non-Ob Complete Test: -US Pelvic Non-Ob Complete REASON FOR EXAMINATION: Vaginal Bleeding - Nn-; ; CLINICAL HISTORY: Vaginal bleeding.; ; TECHNIQUE: High resolution examination consisting of transabdominal and transvaginal ultrasound perf; ormed.; ; FINDINGS:; Uterine size: 8.0 x 4.6 x 4.6. AP endometrial thickness is 5.5 mm. Uterus is anteverted.; ; Right ovary measures 4.0 x 2.5 x 3.1 cm. Left ovary measures 3.0 x 1.6 x 2.1 cm. No evidence of ovar; ericka or adnexal mass.; ; Trace free fluid is noted in cul-de-sac.; ; IMPRESSION:; No acute pathology.; ; ; Thank you for your kind referral of this patient. We appreciate the opportunity to participate in [facility]; s patient's care.; ; Outcome: 20:54 Discharge ordered by Provider. cc10 21:10 Discharge Assessment: Patient awake, alert and oriented x 3. No cognitive and/or kmg1 functional deficits noted. Patient verbalized understanding of disposition instructions. patient administered narcotics - yes. Pt provided with safe discharge. The following High Risk Discharge criteria are identified: None. Discharged to home ambulatory, with friend. Condition: stable. Discharge instructions given to patient, friend, Instructed on discharge instructions, follow up and referral plans. medication usage, Demonstrated understanding of instructions, medications, Pt was receptive of discharge instructions/ teaching. Prescriptions given X 1. Ultrasound Study completed. Property sent home with patient. 21:15 Patient left the ED. kmg1 Signatures: Dispatcher [employer] EDMS Ana Villarreal RN RN kmg1 Deanne Palmer RN RN Naomie Malcolm RN RN Susan Yuen br3 Jian Spencer1 Naomie Olivarez RN RN [id number] Cary Lee2 Jamal Glover, PA-C PA-C cc10 Vanita Orosco, Reg Reg ks16 Di Hernandez, SPORTING GOODS SALES ASSOCIATE SPORTING GOODS SALES ASSOCIATE Francisca Appiah Jose, SPORTING GOODS SALES ASSOCIATE SPORTING GOODS SALES ASSOCIATE jmv Corrections: (The following items were deleted from the chart) 20:09 19:58 Reassessment: Pt taken to ultrasound at this time . jo3 jo3 20:10 20:08 General: Appears in no apparent distress, comfortable, Behavior is appropriate jo3 for age, cooperative, pleasant, jo3 20: 19:30 Neurological: No deficits noted. Level of Consciousness is awake, alert, Oriented jo3 to person, place, time, jo3 20: 19:30 Respiratory: Airway is patent Respiratory effort is even, unlabored, jo3 jo3 20: 19:30 General: Pt reports that pain is decreased at this time. Awaiting results. Aware jo3 of plan of care . jo3 Chart Complete MTDD
--- NOTE | 2016-10-08 11:46 | EDDOCDS ---
Physician Documentation [facility] Name: Radha Sotelo Age: 36 yrs Sex: Female : 1980 Arrival Date: 10/05/2016 Time: 17:57 Bed I2 / M2 Private MD: NO PRIMARY PHYSICIAN, . Disposition: 10/05/16 20:54 Discharged to Home/Self Care. Impression: Abnormal uterine and vaginal bleeding, unspecified. - Condition is Stable. - Discharge Instructions: Abnormal Uterine Bleeding. - Prescriptions for Ibuprofen 800 mg Oral Tablet - take 1 tablet by ORAL route every 8 hours As needed take with food; 30 tablet. - Medication Reconciliation, Local Pharmacy Hours form. - Follow up: Emergency Department; When: As needed; Reason: Worsening of conditions. Follow up: Miladis Vasquez MD; When: Call to arrange an appointment; Reason: Wound/Symptom Recheck, Recheck today's complaints, Worsening of conditions, Continuance of care, To establish care. - Problem is new. - Symptoms have improved. Historical: - Allergies: no known allergies; - PMHx: latent TB; - PSHx: none; - Social history: Smoking status: Patient/guardian denies using No barriers to communication noted, The patient speaks fluent Peruvian. - Family history: Not pertinent. - : The pt / caregiver states he / she is not on anticoagulants. Unable to Verify Home Med List with the patient / caregiver. - Exposure Risk Screening:: None identified. 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 (160.02 cm) (R); Pain 10/10; 20:08 BP 107 / 63 LA Supine (auto/reg); cln 20:45 Pain 2/10; kmg1 21:06 BP 103 / 52 LA Supine (auto/reg); Pulse 85 MON; Resp 20 S; Temp 96.8(O); Pulse Ox 95% cln on R/A; Pain 10/10; 17:59 Body Mass Index 40.74 (104.33 kg, 160.02 cm) gr2 MDM: 18:26 NS 0.9% 1000 ml IV at bolus once ordered. cc10 18:26 ketorolac 30 mg IVP once ordered. cc10 18:26 IV Saline Lock ordered. cc10 18:26 Undress patient appropriately for examination ordered. cc10 18:26 UCG by Nursing ordered. cc10 18:27 Basic Metabolic Profile Ordered. EDMS 18:27 CBC with Diff Ordered. EDMS 18:27 Lipase Ordered. EDMS 18:27 Liver Profile Ordered. EDMS 18:27 Urine Culture Ordered. EDMS 18:27 -US Pelvic Non-Ob Complete Ordered. EDMS 18:27 DUPLEX SCAN LIMITED (DOPPLER)+US Ordered. EDMS 18:27 NOTHING BY MOUTH+DIET ordered. EDMS 18:29 Hcg, Serum Quantitative Ordered. EDMS 18:54 Financial registration complete. ks16 18:54 [facility] Payment Agreement was scanned into [employer] and attached to record. ks16 19:27 URINALYSIS MANUAL Ordered. EDMS 19:39 Basic Metabolic Profile Reviewed. cc10 19:39 CBC with Diff Reviewed. cc10 19:39 Liver Profile Reviewed. cc10 19:39 URINALYSIS MANUAL Reviewed. cc10 19:39 Lipase Reviewed. cc10 19:39 Hcg, Serum Quantitative Reviewed. cc10 19:51 Transvaginal NON- US Ordered. EDMS 20:17 Dilaudid - HYDROmorphone 0.5 mg IVP once ordered. cc10 20:17 diphenhydrAMINE 25 mg IVP once ordered. cc10 20:42 URINALYSIS MANUAL Reviewed. cc10 20:42 MICROSCOPIC, URINE Reviewed. cc10 20:46 Ondansetron 4 mg IVP once ordered. cc10 10/06 08:49 T-Sheet-- Draft Copy was scanned into [employer] and attached to record. [facility] Point of Care Testing: Urine : 10/05 18:47 hCG Reading: Negative; Control Reading: Positive; jmv Ranges: Administered Medications: 18:56 Drug: NS 0.9% 1000 ml [sodium chloride 0.9 % intravenous solution] Route: IV; Rate: jo3 bolus; Site: right hand; 18:56 Drug: ketorolac 30 mg [ketorolac 30 mg/mL (1 mL) injection solution (1 mL)] Route: IVP; jo3 Site: right hand; 20:07 Follow up: Response: Pain is decreased jo3 20:33 Drug: Dilaudid - HYDROmorphone 0.5 mg [hydromorphone 1 mg/mL injection syringe (0.5 kmg1 mL)] Route: IVP; Site: left hand; 20:45 Follow up: Pain 2/10 Adult; Response: Pain is decreased kmg1 20:33 Drug: diphenhydrAMINE 25 mg [diphenhydramine 50 mg/mL injection solution (0.5 mL)] km Route: IVP; Site: left hand; 20:51 Drug: Ondansetron 4 mg [ondansetron HCl 2 mg/mL intravenous solution (2 mL)] Route: kmg1 IVP; Site: right hand; 21:13 Follow up: Response: Nausea is decreased g1 Signatures: Dispatcher [employer] EDMS Ana Villarreal RN RN g1 Deanne Palmer RN RN dls Helmerci, Jennifer, RN RN jo3 Jamal Glover, PAJose PA-Stew cc10 Vanita Orosco, [facility]16 Francisca Rai [facility] The chart was reviewed and I authenticate all verbal orders and agree with the evaluation and treatment provided.Corrections: (The following items were deleted from the chart) 19:27 18:27 URINALYSIS+LAB ordered. EDTX EDTX Attachments: 18:54 [facility] Payment Agreement [email or web address] 10/06 08:49 T-Sheet-- Draft Copy [facility] Chart [facility]
--- NOTE | 2016-10-08 11:47 | EDDOCDS ---
Physician Documentation [facility] Name: Radha Sotelo Age: 36 yrs Sex: Female : 1980 Arrival Date: 10/05/2016 Time: 17:57 Bed I2 / M2 Private MD: NO PRIMARY PHYSICIAN, . Disposition: 10/05/16 20:54 Discharged to Home/Self Care. Impression: Abnormal uterine and vaginal bleeding, unspecified. - Condition is Stable. - Discharge Instructions: Abnormal Uterine Bleeding. - Prescriptions for Ibuprofen 800 mg Oral Tablet - take 1 tablet by ORAL route every 8 hours As needed take with food; 30 tablet. - Medication Reconciliation, Local Pharmacy Hours form. - Follow up: Emergency Department; When: As needed; Reason: Worsening of conditions. Follow up: Miladis Vasquez MD; When: Call to arrange an appointment; Reason: Wound/Symptom Recheck, Recheck today's complaints, Worsening of conditions, Continuance of care, To establish care. - Problem is new. - Symptoms have improved. Historical: - Allergies: no known allergies; - PMHx: latent TB; - PSHx: none; - Social history: Smoking status: Patient/guardian denies using No barriers to communication noted, The patient speaks fluent Italian. - Family history: Not pertinent. - : The pt / caregiver states he / she is not on anticoagulants. Unable to Verify Home Med List with the patient / caregiver. - Exposure Risk Screening:: None identified. 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 (160.02 cm) (R); Pain 10/10; 20:08 BP 107 / 63 LA Supine (auto/reg); cln 20:45 Pain 2/10; kmg1 21:06 BP 103 / 52 LA Supine (auto/reg); Pulse 85 MON; Resp 20 S; Temp 96.8(O); Pulse Ox 95% cln on R/A; Pain 10/10; 17:59 Body Mass Index 40.74 (104.33 kg, 160.02 cm) gr2 MDM: 18:26 NS 0.9% 1000 ml IV at bolus once ordered. cc10 18:26 ketorolac 30 mg IVP once ordered. cc10 18:26 IV Saline Lock ordered. cc10 18:26 Undress patient appropriately for examination ordered. cc10 18:26 UCG by Nursing ordered. cc10 18:27 Basic Metabolic Profile Ordered. EDMS 18:27 CBC with Diff Ordered. EDMS 18:27 Lipase Ordered. EDMS 18:27 Liver Profile Ordered. EDMS 18:27 Urine Culture Ordered. EDMS 18:27 -US Pelvic Non-Ob Complete Ordered. EDMS 18:27 DUPLEX SCAN LIMITED (DOPPLER)+US Ordered. EDMS 18:27 NOTHING BY MOUTH+DIET ordered. EDMS 18:29 Hcg, Serum Quantitative Ordered. EDMS 18:54 Financial registration complete. ks16 18:54 [facility] Payment Agreement was scanned into [employer] and attached to record. ks16 19:27 URINALYSIS MANUAL Ordered. EDMS 19:39 Basic Metabolic Profile Reviewed. cc10 19:39 CBC with Diff Reviewed. cc10 19:39 Liver Profile Reviewed. cc10 19:39 URINALYSIS MANUAL Reviewed. cc10 19:39 Lipase Reviewed. cc10 19:39 Hcg, Serum Quantitative Reviewed. cc10 19:51 Transvaginal NON- US Ordered. EDMS 20:17 Dilaudid - HYDROmorphone 0.5 mg IVP once ordered. cc10 20:17 diphenhydrAMINE 25 mg IVP once ordered. cc10 20:42 URINALYSIS MANUAL Reviewed. cc10 20:42 MICROSCOPIC, URINE Reviewed. cc10 20:46 Ondansetron 4 mg IVP once ordered. cc10 10/06 08:49 T-Sheet-- Draft Copy was scanned into [employer] and attached to record. [facility] Point of Care Testing: Urine : 10/05 18:47 hCG Reading: Negative; Control Reading: Positive; jmv Ranges: Administered Medications: 18:56 Drug: NS 0.9% 1000 ml [sodium chloride 0.9 % intravenous solution] Route: IV; Rate: jo3 bolus; Site: right hand; 18:56 Drug: ketorolac 30 mg [ketorolac 30 mg/mL (1 mL) injection solution (1 mL)] Route: IVP; jo3 Site: right hand; 20:07 Follow up: Response: Pain is decreased jo3 20:33 Drug: Dilaudid - HYDROmorphone 0.5 mg [hydromorphone 1 mg/mL injection syringe (0.5 kmg1 mL)] Route: IVP; Site: left hand; 20:45 Follow up: Pain 2/10 Adult; Response: Pain is decreased kmg1 20:33 Drug: diphenhydrAMINE 25 mg [diphenhydramine 50 mg/mL injection solution (0.5 mL)] km Route: IVP; Site: left hand; 20:51 Drug: Ondansetron 4 mg [ondansetron HCl 2 mg/mL intravenous solution (2 mL)] Route: kmg1 IVP; Site: right hand; 21:13 Follow up: Response: Nausea is decreased g1 Signatures: Dispatcher [employer] EDMS Ana Villarreal RN RN g1 Deanne Palmer RN RN dls Helmerci, Jennifer, RN RN jo3 Jamal Glover, PAJose PA-Stew cc10 Vanita Orosco, [facility] [facility] The chart was reviewed and I authenticate all verbal orders and agree with the evaluation and treatment provided.Corrections: (The following items were deleted from the chart) 19:27 18:27 URINALYSIS+LAB ordered. EDAZ EDAZ Attachments: 18:54 [facility] Payment Agreement ks16 10/06 08:49 T-Sheet-- Draft Copy [facility] Chart Complete [facility]
== END 2016-10-05 21:15 | disposition home or self-care (01) ==
LOC: M ED 17:57
DX: N92.1 Excessive and frequent menstruation with irregular cycle (principal); E66.8 Other obesity; Z68.41 Body mass index [BMI] 40.0-44.9, adult
CPT/HCPCS: 36415; 76830; 76856; 80048; 80076; 81000; 81025; 83690; 84702; 85025; 87086; 93976; 96374; 96375; 99284; J1170; J1200; J1885; J2405

== ENCOUNTER → 2016-10-18 | Outpatient (CLI) | payer BC ==
--- NOTE | 2016-10-18 13:39 | REP ---
Chest two views HISTORY: Cough Comparison: 05/12/2015 The lungs are clear. The heart is normal in size. The pulmonary vasculature is normal in appearance. The bony structure is intact. IMPRESSION: No acute disease. Signed by Nba Jaramillo MD 10/18/2016 01:30 P
== END | disposition home or self-care (01) ==
LOC: M LRY 12:49
PROVIDERS: ATTEND Physician Assistant
DX: R50.9 Fever, unspecified (principal); R05 Cough

== ENCOUNTER → 2016-10-18 | Outpatient (REF) | payer BC | END | disposition home or self-care (01) | LOC: M SFHCLERA 12:17 | PROVIDERS: ATTEND Physician Assistant | DX: R50.9 Fever, unspecified (principal) ==

== ENCOUNTER 2016-10-31 06:33 | Emergency (ER) | payer BC ==
--- NOTE | 2016-10-31 07:16 | EDDOCDS ---
Nurse's Notes [facility] Name: Radha Sotelo Age: 36 yrs Sex: Female : 1980 Arrival Date: 10/31/2016 Time: 06:33 Bed 12 Private MD: Mulu Hatch M. Diagnosis: Candidiasis of vulva and vagina Presentation: 10/31 06:36 Presenting complaint: Patient states: "I wash good but this is itching. I just finished cf2 Augmentin yesterday". Patient states vaginal itching, discharge for the past three days. Patient states has been washing, eating good, and drinking extra fluids but symptoms continue. Adult Sepsis Screening: The patient does not have new or worsening altered mentation. Patient's respiratory rate is less than 22. Systolic blood pressure is greater than 100. Patient has a qSOFA score of 0- Negative Sepsis Screen. Suicide/Homicide risk assessment- the patient denies having any suicidal and/or homicidal ideations and does not present with any other emotional, behavioral or mental health complaints. Status: Patient is not a sales agent protective service or dependent. Transition of care: patient was not received from another setting of care. 06:36 Acuity: CASSIE Level 4 cf2 06:36 Method Of Arrival: Walkin/Carried/Asstd cf2 Triage Assessment: 06:38 General: Appears in no apparent distress, comfortable, Behavior is appropriate for age, cf2 cooperative. Pain: Denies pain. Pt Declines HIV testing. 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 Race: Black or , Ethnicity: Not or No barriers to communication noted, Preferred Language: Setswana. - Family history: Not pertinent. - : The pt / caregiver states he / she is not on anticoagulants. Home medication list is obtained from the patient. - Exposure Risk Screening:: None identified. Screenin:51 Screening information is obtained from the patient. Fall risk: No risks identified. kas2 Assistance ADL's: requires no assistance with activities of daily living. Abuse/DV Screen: The patient / caregiver reports he/she is: not in a situation that causes fear, pain or injury. Nutritional screening: No deficits noted. Advance Directives: Currently, there is no health care proxy. There is no active DNR order. There is no living will. There is. home support is adequate. Assessment: 06:49 General: Appears in no apparent distress, uncomfortable, well nourished, well groomed, kas2 Behavior is appropriate for age, cooperative. Pain: Denies pain. Neurological: Level of Consciousness is awake, alert, Oriented to person, place, time. Cardiovascular: Capillary refill < 3 seconds Rhythm is regular. Respiratory: Airway is patent Respiratory effort is even, unlabored, Respiratory pattern is regular, symmetrical, Breath sounds are clear bilaterally. : Reports vaginal itching since 3 days ago. Derm: Skin is intact, Skin is dry, Skin temperature is warm. Vital Signs: 06:38 BP 147 / 68; Pulse 84; Resp 16; Temp 97.2; Pulse Ox 99% on R/A; Weight 101.6 kg; Height cf2 5 ft. 2 in. (157.48 cm); Pain 3/10; 06:38 Body Mass Index 40.97 (101.60 kg, 157.48 cm) cf2 Vitals: 07:15 Log In Time: October 31, 2016 at 06:38. kr3 ED Course: 06:34 Patient visited by Chas Mcintosh Reg. pm4 06:34 Mulu Hatch is Private Physician. pm4 06:34 Patient moved to Waiting pm4 06:38 Triage Initiated cf2 06:42 Pearl Jeffery RN is Primary Nurse. cf2 06:42 Patient moved to 12 cf2 06:51 Patient visited by Pearl Jeffery RN. kas2 07:00 Robi Helton PA is PHCP. btw 07:00 Francisca Crowe MD is Attending Physician. btw 07:00 Patient visited by oRbi Helton PA. btw 07:01 Justine Lenz,ROMINA is Primary Nurse. kr3 07:05 Mulu Hatch is Referral Physician. btw 07:14 No IV's were initiated during this patient's visit. No procedures done that require kr3 assistance. 07:15 The patient / caregiver is instructed regarding the plan of care and ED course. Patient kr3 has correct armband on for positive identification. Order Results: There are currently no results for this order. Outcome: 07:05 Discharge ordered by Provider. bt 07:14 Discharge Assessment: patient administered narcotics - no. The following High Risk kr3 Discharge criteria are identified: None. Discharged to home ambulatory. Condition: stable. Discharge instructions given to patient, Instructed on discharge instructions, follow up and referral plans. medication usage, Demonstrated understanding of instructions, medications, Pt was receptive of discharge instructions/ teaching. Prescriptions given X 1. No special radiology studies were completed. Property sent home with patient. 07:15 Patient left the ED. kr3 Signatures: Justine Lenz,RN RN kr3 Robi Helton PA PA btw Pearl JefferyRN RN kas2 Flora Woodall,RN RN cf2 Chas Mcintosh, Reg Reg pm4 MTDD
--- NOTE | 2016-10-31 07:16 | EDDOCDS ---
Physician Documentation [facility] Name: Radha Sotelo Age: 36 yrs Sex: Female : 1980 Arrival Date: 10/31/2016 Time: 06:33 Bed 12 Private MD: Mulu Hatch M. Disposition: 10/31/16 07:05 Discharged to Home/Self Care. Impression: Candidiasis of vulva and vagina. - Condition is Stable. - Discharge Instructions: Vaginitis, Monilial. - Prescriptions for Diflucan 150 mg Oral Tablet - take 1 tablet by ORAL route one time for 1 day; 1 tablet. - Medication Reconciliation, Local Pharmacy Hours form. - Follow up: Mulu Hatch; When: Call to arrange an appointment; Reason: Further diagnostic work-up, Recheck today's complaints, Continuance of care. - Problem is new. - Symptoms are unchanged. Historical: - Allergies: Latex; - PMHx: latent TB; - Social history: Smoking status: Patient states was never smoker of tobacco. Race: Black or , Ethnicity: Not or No barriers to communication noted, Preferred Language: Latvian. - Family history: Not pertinent. - : The pt / caregiver states he / she is not on anticoagulants. Home medication list is obtained from the patient. - Exposure Risk Screening:: None identified. 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 2 in. (157.48 cm); Pain 3/10; 06:38 Body Mass Index 40.97 (101.60 kg, 157.48 cm) cf2 Signatures: Justine Lenz,RN RN kr3 Robi Helton PA PA btw Flora WoodallRN RN cf2 MTDD
--- NOTE | 2016-11-02 08:16 | EDDOCDS ---
Nurse's Notes [facility] Name: Radha Sotelo Age: 36 yrs Sex: Female : 1980 Arrival Date: 10/31/2016 Time: 06:33 Bed 12 Private MD: Mulu Hatch M. Diagnosis: Candidiasis of vulva and vagina Presentation: 10/31 06:36 Presenting complaint: Patient states: "I wash good but this is itching. I just finished cf2 Augmentin yesterday". Patient states vaginal itching, discharge for the past three days. Patient states has been washing, eating good, and drinking extra fluids but symptoms continue. Adult Sepsis Screening: The patient does not have new or worsening altered mentation. Patient's respiratory rate is less than 22. Systolic blood pressure is greater than 100. Patient has a qSOFA score of 0- Negative Sepsis Screen. Suicide/Homicide risk assessment- the patient denies having any suicidal and/or homicidal ideations and does not present with any other emotional, behavioral or mental health complaints. Status: Patient is not a clerk telegraph service or dependent. Transition of care: patient was not received from another setting of care. 06:36 Acuity: CASSIE Level 4 cf2 06:36 Method Of Arrival: Walkin/Carried/Asstd cf2 Triage Assessment: 06:38 General: Appears in no apparent distress, comfortable, Behavior is appropriate for age, cf2 cooperative. Pain: Denies pain. Pt Declines HIV testing. 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 Race: Black or , Ethnicity: Not or No barriers to communication noted, Preferred Language: Amharic. - Family history: Not pertinent. - : The pt / caregiver states he / she is not on anticoagulants. Home medication list is obtained from the patient. - Exposure Risk Screening:: None identified. Screenin:51 Screening information is obtained from the patient. Fall risk: No risks identified. kas2 Assistance ADL's: requires no assistance with activities of daily living. Abuse/DV Screen: The patient / caregiver reports he/she is: not in a situation that causes fear, pain or injury. Nutritional screening: No deficits noted. Advance Directives: Currently, there is no health care proxy. There is no active DNR order. There is no living will. There is. home support is adequate. Assessment: 06:49 General: Appears in no apparent distress, uncomfortable, well nourished, well groomed, kas2 Behavior is appropriate for age, cooperative. Pain: Denies pain. Neurological: Level of Consciousness is awake, alert, Oriented to person, place, time. Cardiovascular: Capillary refill < 3 seconds Rhythm is regular. Respiratory: Airway is patent Respiratory effort is even, unlabored, Respiratory pattern is regular, symmetrical, Breath sounds are clear bilaterally. : Reports vaginal itching since 3 days ago. Derm: Skin is intact, Skin is dry, Skin temperature is warm. Vital Signs: 06:38 BP 147 / 68; Pulse 84; Resp 16; Temp 97.2; Pulse Ox 99% on R/A; Weight 101.6 kg; Height cf2 5 ft. 2 in. (157.48 cm); Pain 3/10; 06:38 Body Mass Index 40.97 (101.60 kg, 157.48 cm) cf2 Vitals: 07:15 Log In Time: October 31, 2016 at 06:38. kr3 ED Course: 06:34 Patient visited by Chas Mcintosh Reg. pm4 06:34 Mulu Hatch is Private Physician. pm4 06:34 Patient moved to Waiting pm4 06:38 Triage Initiated cf2 06:42 Pearl Jeffery RN is Primary Nurse. cf2 06:42 Patient moved to 12 cf2 06:51 Patient visited by Pearl Jeffery RN. kas2 07:00 Robi Helton PA is PHCP. btw 07:00 Francisca rCowe MD is Attending Physician. btw 07:00 Patient visited by Robi Helton PA. btw 07:01 Justine Lenz,ROMINA is Primary Nurse. kr3 07:05 Mulu Hatch is Referral Physician. btw 07:14 No IV's were initiated during this patient's visit. No procedures done that require kr3 assistance. 07:15 The patient / caregiver is instructed regarding the plan of care and ED course. Patient mg3 has correct armband on for positive identification. 07:16 Patient name changed from Radha\\S\\A\\S\\Sotelo\\S\\ to Radha\\S\\Eveline\\S\\Sotelo. EDMS 07:23 [facility] Payment Agreement was scanned into [employer] and attached to record. hs2 11/01 09:15 T-Sheet-- Draft Copy was scanned into [employer] and attached to record. gb Order Results: There are currently no results for this order. Outcome: 10/31 07:05 Discharge ordered by Provider. btw 07:14 Discharge Assessment: patient administered narcotics - no. The following High Risk kr3 Discharge criteria are identified: None. Discharged to home ambulatory. Condition: stable. Discharge instructions given to patient, Instructed on discharge instructions, follow up and referral plans. medication usage, Demonstrated understanding of instructions, medications, Pt was receptive of discharge instructions/ teaching. Prescriptions given X 1. No special radiology studies were completed. Property sent home with patient. 07:15 Patient left the ED. kr3 Signatures: Dispatcher [employer] EDMS Ely Sauceda, Reg Reg gb Justine Lenz,RN RN kr3 Robi Helton PA PA btw Renetta Kolb, Reg Reg hs2 Pearl Jeffery,RN RN kas2 Flora Woodall,RN RN cf2 Chas Mcintosh, Reg Reg pm4 Chart Complete MTDD
--- NOTE | 2016-11-02 08:16 | EDDOCDS ---
Physician Documentation Name: Radha Sotelo Age: 36 yrs Sex: Female : 1980 Arrival Date: 10/31/2016 Time: 06:33 Bed 12 Private MD: Mulu Hatch M. Disposition: 10/31/16 07:05 Discharged to Home/Self Care. Impression: Candidiasis of vulva and vagina. - Condition is Stable. - Discharge Instructions: Vaginitis, Monilial. - Prescriptions for Diflucan 150 mg Oral Tablet - take 1 tablet by ORAL route one time for 1 day; 1 tablet. - Medication Reconciliation, Local Pharmacy Hours form. - Follow up: Mulu Hatch; When: Call to arrange an appointment; Reason: Further diagnostic work-up, Recheck today's complaints, Continuance of care. - Problem is new. - Symptoms are unchanged. Historical: - Allergies: Latex; - PMHx: latent TB; - Social history: Smoking status: Patient states was never smoker of tobacco. Race: Black or , Ethnicity: Not or No barriers to communication noted, Preferred Language: Lao. - Family history: Not pertinent. - : The pt / caregiver states he / she is not on anticoagulants. Home medication list is obtained from the patient. - Exposure Risk Screening:: None identified. 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 2 in. (157.48 cm); Pain 3/10; 06:38 Body Mass Index 40.97 (101.60 kg, 157.48 cm) cf2 MDM: 07:23 Financial registration complete. hs2 07:23 [facility] Payment Agreement was scanned into [employer] and attached to record. hs2 11/01 09:15 T-Sheet-- Draft Copy was scanned into [employer] and attached to record. gb Signatures: Ely Sauceda, Reg Reg gb Justine Lenz,ROMINA RN kr3 Robi Helton PA PA btw Renetta Kolb, Reg Reg hs2 Familetti-Tony,Flora,RN RN cf2 The chart was reviewed and I authenticate all verbal orders and agree with the evaluation and treatment provided.Attachments: 10/31 07:23 [facility] [place] Payment Agreement hs2 11/01 09:15 T-Sheet-- Draft Copy gb Chart Complete MTDD
--- NOTE | 2016-11-02 08:16 | EDDOCDS ---
Physician Documentation [facility] Name: Radha Sotelo Age: 36 yrs Sex: Female : 1980 Arrival Date: 10/31/2016 Time: 06:33 Bed 12 Private MD: Mulu Hatch M. Disposition: 10/31/16 07:05 Discharged to Home/Self Care. Impression: Candidiasis of vulva and vagina. - Condition is Stable. - Discharge Instructions: Vaginitis, Monilial. - Prescriptions for Diflucan 150 mg Oral Tablet - take 1 tablet by ORAL route one time for 1 day; 1 tablet. - Medication Reconciliation, Local Pharmacy Hours form. - Follow up: Mulu Hatch; When: Call to arrange an appointment; Reason: Further diagnostic work-up, Recheck today's complaints, Continuance of care. - Problem is new. - Symptoms are unchanged. Historical: - Allergies: Latex; - PMHx: latent TB; - Social history: Smoking status: Patient states was never smoker of tobacco. Race: Black or , Ethnicity: Not or No barriers to communication noted, Preferred Language: Setswana. - Family history: Not pertinent. - : The pt / caregiver states he / she is not on anticoagulants. Home medication list is obtained from the patient. - Exposure Risk Screening:: None identified. 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 2 in. (157.48 cm); Pain 3/10; 06:38 Body Mass Index 40.97 (101.60 kg, 157.48 cm) cf2 MDM: 07:23 Financial registration complete. hs2 07:23 [facility] Payment Agreement was scanned into [employer] and attached to record. hs2 11/01 09:15 T-Sheet-- Draft Copy was scanned into [employer] and attached to record. gb Signatures: Ely Sauceda, Reg Reg gb Justine Lenz,ROMINA RN kr3 Robi Helton PA PA btw Renetta Kolb, Reg Reg hs2 Familetti-Tony,Flora,RN RN cf2 The chart was reviewed and I authenticate all verbal orders and agree with the evaluation and treatment provided.Attachments: 10/31 07:23 [facility] [place] Agreement hs2 11/01 09:15 T-Sheet-- Draft Copy gb Chart Complete MTDD
== END 2016-10-31 07:15 | disposition home or self-care (01) ==
LOC: M ED 06:33
DX: B37.3 Candidiasis of vulva and vagina (principal); R76.11 Nonspecific reaction to tuberculin skin test without active tuberculosis; Z91.040 Latex allergy status

== ENCOUNTER → 2016-11-02 | Outpatient (CLI) | payer BC ==
[2016-11-02 18:46] LABS: FREE T4 1.18 NG/DL (0.76-1.46)
[2016-11-04 10:52] LABS: PROLACTIN 6.4 NG/ML
== END | disposition home or self-care (01) ==
LOC: M WUC 08:06
PROVIDERS: ATTEND Obstetrics & Gynecology
DX: N92.6 Irregular menstruation, unspecified (principal)

== ENCOUNTER → 2016-12-09 | Outpatient (REF) | payer BC | LOC: M SFHCLERA 13:32 | PROVIDERS: ATTEND Family Medicine | DX: Z01.419 Encounter for gynecological examination (general) (routine) without abnormal findings (principal); Z11.51 Encounter for screening for human papillomavirus (HPV) ==

== ENCOUNTER → 2016-12-20 | Outpatient (REF) | payer BC, MEDICAID | LOC: M SFHCLERA 14:25 | PROVIDERS: ATTEND Family Medicine | DX: Z53.8 Procedure and treatment not carried out for other reasons (principal) ==

== ENCOUNTER 2017-02-02 21:49 | Emergency (ER) | payer BC, MEDICAID ==
[~2017-02-02] VITALS: Ht 157.5 cm; Wt 97.5 kg
[2017-02-02] MEDS ORDERED: OLOP1OPD OU (23:49)
[2017-02-02] MEDS ORDERED: MIRA3350 PO (23:49)
[2017-02-02 23:55] VITALS: BP 124/60
[2017-02-03] MEDS ORDERED: MAGNESIUM CITRATE 300 ML BTL PO ONE
--- NOTE | 2017-02-03 03:08 | REP ---
Clinical: Constipation and and abdominal pain. Technique: Upright view of the chest with supine and upright views of the abdomen and pelvis. Findings: Frontal upright view of the chest demonstrates no acute cardiopulmonary process or free air below the diaphragm to suspect pneumoperitoneum. Supine and upright views of the abdomen and pelvis demonstrate nonspecific bowel gas pattern without obstruction or perforation. No organomegaly. No abnormal calcifications. Skeletal structures normal for age. Impression: Nonspecific bowel gas pattern. Signed by Reid Gomes MD 02/03/2017 02:59 A
== END 2017-02-03 00:01 | disposition home or self-care (01) ==
LOC: M ED 23:38
DX: K59.00 Constipation, unspecified (principal); H10.13 Acute atopic conjunctivitis, bilateral; Z91.040 Latex allergy status

== ENCOUNTER → 2017-05-07 | Outpatient (REF) | payer BC, MEDICAID ==
[~2017-05-07] MED LIST: MIRA3350 PO; OLOP1OPD OU
== END ==
LOC: M SFHCLERA 08:19
PROVIDERS: ATTEND Family Medicine
DX: R11.2 Nausea with vomiting, unspecified (principal); Z31.9 Encounter for procreative management, unspecified; N64.4 Mastodynia

== ENCOUNTER → 2017-05-08 | Outpatient (CLI) | payer BC, MEDICAID ==
[2017-05-08 17:39] LABS: MEAN CORPUSCULAR HEMOGLOBIN 24.7 pg (27.0-33.0); MEAN CORPUSCULAR HGB CONC 31.8 g/dl (32.0-36.5); MEAN CORPUSCULAR VOLUME 77.6 fl (80.0-96.0); RED CELL DISTRIBUTION WIDTH 18.3 % (11.5-14.5); WHITE BLOOD COUNT 7.1 K/mm3 (4.0-10.0)
[2017-05-08 18:33] LABS: ANION GAP 9 MEQ/L (8-16); BLOOD UREA NITROGEN 8 MG/DL (7-18); CALCIUM LEVEL 8.6 MG/DL (8.5-10.1); CARBON DIOXIDE LEVEL 26 MEQ/L (21-32); CHLORIDE LEVEL 103 MEQ/L (98-107); CREATININE FOR GFR 0.81 MG/DL (0.55-1.02); GLOMERULAR FILTRATION RATE > 60.0 (>60); GLUCOSE, FASTING 76 MG/DL (70-105); POTASSIUM SERUM 3.8 MEQ/L (3.5-5.1); SODIUM LEVEL 138 MEQ/L (136-145)
[2017-05-08 19:18] LABS: EOSINOPHILS 1 % (0-5)
[2017-05-08 19:19] LABS: ANISOCYTOSIS 2+; MICROCYTOSIS 1+
[2017-05-08 21:44] LABS: CONTROL LINE HCG INT CTR LINE PRESENT
== END ==
LOC: M WUC 14:49
PROVIDERS: ATTEND Family Medicine
DX: R11.2 Nausea with vomiting, unspecified (principal); Z31.9 Encounter for procreative management, unspecified; N64.4 Mastodynia

== ENCOUNTER → 2017-06-05 | Outpatient (REF) | payer BC, MEDICAID | LOC: M SFHCLERA 08:34 | PROVIDERS: ATTEND Family Medicine | DX: N64.4 Mastodynia (principal); R11.0 Nausea ==

== ENCOUNTER → 2017-06-18 | Outpatient (CLI) | payer BC | LOC: M RAD 08:49 | PROVIDERS: ATTEND Family Medicine | DX: Z53.8 Procedure and treatment not carried out for other reasons (principal) ==

== ENCOUNTER → 2017-06-26 | Outpatient (CLI) | payer BC ==
[2017-06-26 17:48] LABS: CONTROL LINE HCG INT CTR LINE PRESENT
[2017-06-26 18:08] LABS: PROLACTIN 6.8 NG/ML
== END ==
LOC: M WUC 15:13
PROVIDERS: ATTEND Family Medicine
DX: N64.4 Mastodynia (principal); R11.0 Nausea

== ENCOUNTER → 2017-08-07 | Outpatient (REF) | payer OTHER | LOC: M SFHCLERA 07:40 | PROVIDERS: ATTEND Family Medicine | DX: Z31.69 Encounter for other general counseling and advice on procreation (principal); D50.9 Iron deficiency anemia, unspecified; Z53.9 Procedure and treatment not carried out, unspecified reason ==

== ENCOUNTER → 2018-06-15 | Outpatient (CLI) | payer SELFPAY | LOC: M WUC 13:53 | DX: R76.11 Nonspecific reaction to tuberculin skin test without active tuberculosis (principal) | CPT/HCPCS: 71046 ==

== ENCOUNTER 2018-10-29 10:10 | Emergency (ER) | payer BC, OTHER ==
[~2018-10-29] VITALS: Ht 154.9 cm; Wt 100.0 kg
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
[2018-10-29] MEDS ORDERED: NAPR-885 PO (12:15)
[2018-10-29] MEDS ORDERED: ROBA500T PO (12:15)
[2018-10-29 12:24] VITALS: BP 130/78
== END 2018-10-29 12:25 | disposition home or self-care (01) ==
LOC: M ED 10:10
DX: S39.012A Strain of muscle, fascia and tendon of lower back, initial encounter (principal); S13.4XXA Sprain of ligaments of cervical spine, initial encounter; V49.49XA Driver injured in collision with other motor vehicles in traffic accident, initial encounter; Y92.410 Unspecified street and highway as the place of occurrence of the external cause; Z91.040 Latex allergy status

== ENCOUNTER → 2019-02-02 | Outpatient (CLI) | payer OTHER, BC ==
[~2019-02-02] MED LIST changes: +NAPR-885 PO; -OLOP1OPD OU; +PATA2.5S OU; +ROBA500T PO
[2019-02-02 14:35] LABS: FREE T4 0.99 NG/DL (0.76-1.46); THYROID STIMULATING HORMONE 0.764 uIU/ML (0.358-3.740)
[2019-02-02 14:43] LABS: PROLACTIN 9.6 NG/ML
[2019-02-07 00:10] LABS: INSULIN FREE 8.1 uU/mL (.); INSULIN TOTAL2 8.1 uU/mL (.)
== END ==
LOC: M SMT 10:10
PROVIDERS: ATTEND Advanced Practice Midwife
DX: N92.4 Excessive bleeding in the premenopausal period (principal)

== ENCOUNTER → 2019-02-08 | Outpatient (CLI) | payer BC ==
--- NOTE | 2019-02-09 04:14 | REP ---
Clinical: Abnormal uterine bleeding. Menorrhagia . Technique: Transabdominal pelvic ultrasound followed by transvaginal examination for better evaluation of the endometrium and adnexa with color Doppler evaluation of the ovaries. Findings: Bladder is unremarkable and measures 6.9 x 7.6 x 5.1 cm . Heterogeneous anteverted myomatous uterus measures 8.8 x 4.7 x 5.5 cm with 1.3 cm posterior subserosal fibroid and 1.2 cm posterior lower uterine segment subserosal fibroid. The endometrial complex measures 5.5 mm thickness. No discrete uterine or endometrial abnormalities are appreciated. Bilateral ovaries are normal in appearance and vascularity without evidence for torsion. Right ovary measures 3.0 x 2.9 x 4.2 cm with 2.3 cm cyst ; R I = 0.78 . Left ovary measures 2.9 x 1.8 x 2.2 cm ; R I = 0.53 . No pelvic fluid or adnexal mass lesion . Impression: 1. Heterogeneous myomatous uterus. 2. 2.3 cm right ovarian cyst. Electronically Signed by Reid Gomes MD 02/09/2019 04:05 A
== END ==
LOC: M RAD 09:07
PROVIDERS: ATTEND Advanced Practice Midwife
DX: D25.9 Leiomyoma of uterus, unspecified (principal); N83.201 Unspecified ovarian cyst, right side

== ENCOUNTER → 2019-02-14 | Outpatient (CLI) | payer BC ==
[2019-02-15 10:22] LABS: ESTRADIOL 88.7 PG/ML; PROGESTERONE 5.73 NG/ML
== END ==
LOC: M WUC 08:52
PROVIDERS: ATTEND Advanced Practice Midwife
DX: Z31.61 Procreative counseling and advice using natural family planning (principal)

== ENCOUNTER → 2019-02-24 | Outpatient (CLI) | payer BC | LOC: M WUC 16:55 | PROVIDERS: ATTEND Advanced Practice Midwife | DX: Z31.61 Procreative counseling and advice using natural family planning (principal) ==

== ENCOUNTER → 2019-03-29 | Outpatient (CLI) | payer BC ==
[~2019-03-29] MED LIST changes: +ISOVUE-370 76% 100ML VIAL (Q9967) As Ordered ONE
--- NOTE | 2019-03-29 17:39 | REP ---
Clinical: Secondary infertility. Technique: Real time fluoroscopic evaluation performed in conjunction with the [employer] SITE COORDINATOR. Findings: Data Integration Developer film of the pelvis is unremarkable. Contrast administration demonstrates normal contour to the uterus and normal fallopian tubes with spillage of contrast into the pelvis. Total fluoroscopic time: 1.4 minutes. Impression: 1. Spillage of contrast consistent with patent fallopian tube(s) 2. Normal contour to the uterus. Electronically Signed by Reid Gomes MD 03/29/2019 05:30 P
== END ==
LOC: M RADPRO 12:00
PROVIDERS: ATTEND Obstetrics & Gynecology
DX: N97.2 Female infertility of uterine origin (principal)
CPT/HCPCS: 58340; 74740; Q9967

== ENCOUNTER → 2019-04-13 | Outpatient (CLI) | payer OTHER ==
[~2019-04-13] MED LIST changes: -ISOVUE-370 76% 100ML VIAL (Q9967) As Ordered ONE
[2019-04-13 15:43] LABS: HCG, SERUM QUALITATIVE NEGATIVE (NEGATIVE)
[2019-04-13 15:57] LABS: INR 1.1; PROTHROMBIN TIME 13.9 SECONDS (11.8-14.0)
[2019-04-13 15:58] LABS: PARTIAL THROMBOPLASTIN TIME 38.5 SECONDS (25.0-38.4)
== END ==
LOC: M WUC 13:17
PROVIDERS: ATTEND Physical Medicine & Rehabilitation
DX: Z01.812 Encounter for preprocedural laboratory examination (principal)

== ENCOUNTER → 2019-06-24 | Outpatient (CLI) | payer BC, MEDICAID | LOC: M LAB 10:47 | PROVIDERS: ATTEND Obstetrics & Gynecology Obstetrics | DX: N97.9 Female infertility, unspecified (principal) ==

== ENCOUNTER → 2019-08-09 | Outpatient (REF) | payer OTHER ==
[2019-08-09 13:17] LABS: HCG, SERUM QUALITATIVE NEGATIVE (NEGATIVE)
== END ==
LOC: M LABDRAW1 10:41
PROVIDERS: ATTEND Physician Assistant
DX: Z79.899 Other long term (current) drug therapy (principal)

== ENCOUNTER → 2019-09-08 | Outpatient (REF) | payer BC, MEDICAID ==
[2019-09-08 21:38] LABS: CHLAMYDIA DNA AMPLIFICATION NEGATIVE (NEGATIVE); GC DNA AMPLIFICATION NEGATIVE (NEGATIVE)
== END ==
LOC: M SFHCLERA 11:57
PROVIDERS: ATTEND Family Medicine
DX: Z11.3 Encounter for screening for infections with a predominantly sexual mode of transmission (principal)

== ENCOUNTER → 2019-12-22 | Outpatient (REF) | payer BC, MEDICAID, OTHER | LOC: M LABDRAW1 11:41 | PROVIDERS: ATTEND Physician Assistant | DX: Z00.00 Encounter for general adult medical examination without abnormal findings (principal) ==

== ENCOUNTER → 2020-10-09 | Outpatient (CLI) | payer SELFPAY | LOC: M LABSMTC 12:02 | PROVIDERS: ATTEND Pediatrics | DX: Z20.822 Contact with and (suspected) exposure to COVID-19 (principal) ==

== ENCOUNTER → 2020-10-12 | Outpatient (CLI) | payer BC ==
--- NOTE | 2020-10-12 12:20 | REP ---
INDICATION: COUGH, COVID PENDING COMPARISON: 10/29/2018. TECHNIQUE: PA/Lateral FINDINGS: Lungs: Clear, no infiltrate. Heart: Normal in size. Mediastinum: Mediastinal silhouette unremarkable. Pleural angles: Unremarkable.. Bones and soft tissues: Unremarkable. IMPRESSION: No acute pulmonary disease. <Electronically signed by Brian Monteiro > 10/12/20 [id number]
== END ==
LOC: M WUC 12:00
PROVIDERS: ATTEND Nurse Practitioner Family
DX: J06.9 Acute upper respiratory infection, unspecified (principal)

== ENCOUNTER → 2020-10-12 | Outpatient (REF) | payer BC, OTHER | LOC: M SFHCLERA 11:11 | PROVIDERS: ATTEND Nurse Practitioner Family | DX: J06.9 Acute upper respiratory infection, unspecified (principal) ==

== ENCOUNTER → 2020-12-08 | Outpatient (CLI) | payer BC, OTHER ==
[2020-12-08 14:19] LABS: C REACTIVE PROTEIN QUANTITATIV 1.07 MG/DL (0.00-0.30); RHEUMATOID FACTOR QUANT < 10.0 IU/ML (<15.0)
== END ==
LOC: M PLALAB 10:18
PROVIDERS: ATTEND Physician Assistant
DX: M47.812 Spondylosis without myelopathy or radiculopathy, cervical region (principal)

== ENCOUNTER → 2020-12-19 | Outpatient (CLI) | payer BC, OTHER | LOC: M PLALAB 10:03 | PROVIDERS: ATTEND Physical Medicine & Rehabilitation | DX: M47.892 Other spondylosis, cervical region (principal) ==

== ENCOUNTER → 2021-02-14 | Outpatient (REF) | payer BC | LOC: M SFHCLERA 16:04 | PROVIDERS: ATTEND Family Medicine | DX: Z11.3 Encounter for screening for infections with a predominantly sexual mode of transmission (principal) ==

== ENCOUNTER → 2021-02-15 | Outpatient (CLI) | payer BC ==
[2021-02-15 17:20] LABS: ALBUMIN 3.2 GM/DL (3.2-5.2); ALT/SGPT 19 U/L (12-78); BILIRUBIN,TOTAL 0.3 MG/DL (0.2-1.0); BLOOD UREA NITROGEN 7 MG/DL (7-18); CALCIUM LEVEL 8.8 MG/DL (8.5-10.1); CARBON DIOXIDE LEVEL 25 MEQ/L (21-32); CHLORIDE LEVEL 108 MEQ/L (98-107); CHOLESTEROL LEVEL 180 MG/DL (<200); CHOLESTEROL RISK RATIO 3.913 (<5); CREATININE FOR GFR 0.86 MG/DL (0.55-1.30); GLOMERULAR FILTRATION RATE > 60.0 (>58); GLUCOSE, FASTING 105 MG/DL (70-100); HDL CHOLESTEROL 46 MG/DL (>40); LDL CHOLESTEROL 111 MG/DL (<100); NON-HDL-C 134 MG/DL; POTASSIUM SERUM 3.4 MEQ/L (3.5-5.1); SODIUM LEVEL 140 MEQ/L (136-145); TOTAL PROTEIN 7.3 GM/DL (6.4-8.2); TRIGLYCERIDES LEVEL 116 MG/DL (<150)
[2021-02-15 17:31] LABS: HEPATITIS B SURFACE ANTIBODY POSITIVE (POSITIVE)
[2021-02-15 17:41] LABS: HEPATITIS B SURFACE ANTIGEN NEGATIVE (NEGATIVE)
[2021-02-15 18:10] LABS: HEPATITIS C VIRUS ABY INDEX 0.1 INDEX (<0.8); HIV 1&2 SCREEN CENTAUR NEGATIVE (NEGATIVE)
== END ==
LOC: M WUC 10:51
PROVIDERS: ATTEND Family Medicine
DX: Z11.3 Encounter for screening for infections with a predominantly sexual mode of transmission (principal); N92.6 Irregular menstruation, unspecified

== ENCOUNTER → 2021-03-26 | Outpatient (REF) | payer BC, MEDICAID | LOC: M SFHCLERA 15:25 | PROVIDERS: ATTEND Nurse Practitioner Family | DX: N94.9 Unspecified condition associated with female genital organs and menstrual cycle (principal) ==

== ENCOUNTER → 2021-03-26 | Outpatient (REF) | payer BC, MEDICAID | LOC: M SFHCLERA 19:01 | PROVIDERS: ATTEND Nurse Practitioner Family | DX: N94.9 Unspecified condition associated with female genital organs and menstrual cycle (principal) ==

== ENCOUNTER → 2021-03-27 | Outpatient (CLI) | payer BC, MEDICAID ==
--- NOTE | 2021-03-27 11:13 | REP ---
INDICATION: JOINT PAIN COMPARISON: None. TECHNIQUE: AP, lateral, bilateral oblique views right and left ankle. FINDINGS: Right ankle demonstrates generalized soft tissue swelling. There is small spur at the tip of the fibula/lateral malleolus. Remainder of the examination is essentially age-appropriate. Ankle mortise and talar dome are intact and normal. Lateral view demonstrates small calcaneal heel spur. No acute fracture or dislocation. Left ankle demonstrates generalized soft tissue swelling. Remainder of the examination is essentially age-appropriate. Ankle mortise and talar dome are intact and normal. Lateral view demonstrates small calcaneal heel spur. No acute fracture or dislocation. IMPRESSION: Minimal age-related changes. <Electronically signed by Reid Gomes > 03/27/21 [id number]
--- NOTE | 2021-03-27 11:14 | REP ---
INDICATION: JOINT PAIN COMPARISON: None. TECHNIQUE: AP, lateral, bilateral oblique views right and left wrist. FINDINGS: Right wrist demonstrates essentially normal age-appropriate appearance to the carpal bones, joint spaces, and surrounding osseous and soft tissue structures. No significant overt osteoarthritic or inflammatory arthritic changes are appreciated. No evidence for acute or healed injury. Left wrist demonstrates essentially normal age-appropriate appearance to the carpal bones, joint spaces, and surrounding osseous and soft tissue structures. No significant overt osteoarthritic or inflammatory arthritic changes are appreciated. No evidence for acute or healed injury. IMPRESSION: Essentially age-appropriate bilateral wrist radiograph series. <Electronically signed by Redi Gomes > 03/27/21 [id number]
--- NOTE | 2021-03-27 11:17 | REP ---
INDICATION: JOINT PAIN COMPARISON: None. TECHNIQUE: AP, lateral, bilateral oblique views right and left hand. FINDINGS: Right hand demonstrates periarticular sclerosis, cortical irregularity and subtle spurring/osteophyte formation at the 1st interphalangeal joint. Remainder of the examination is essentially age-appropriate and within normal limits. No evidence for acute or healed injury. Left hand is essentially age-appropriate and within normal limits. No overt osteoarthritic or inflammatory arthritic changes are appreciated. No evidence for acute or healed injury. IMPRESSION: Essentially age-appropriate examination with focal moderate degenerative change at the right 1st interphalangeal joint. <Electronically signed by Reid Gomes > 03/27/21 [id number]
--- NOTE | 2021-03-27 11:18 | REP ---
INDICATION: JOINT PAIN COMPARISON: None. TECHNIQUE: AP, lateral, bilateral oblique views right and left foot. FINDINGS: The osseous structures and joint spaces are intact and normal. There is no evidence for acute fracture or dislocation. Surrounding soft tissues are unremarkable. No subcutaneous emphysema or radiodense foreign body. Small incidental bilateral calcaneal heel spurs noted. No overt osteoarthritic or inflammatory arthritic changes are appreciated. IMPRESSION: Essentially normal, age-appropriate symmetric bilateral foot radiograph series. <Electronically signed by Reid Gomes > 03/27/21 [id number]
== END ==
LOC: M WUC 10:36
PROVIDERS: ATTEND Internal Medicine
DX: M06.4 Inflammatory polyarthropathy (principal)

== ENCOUNTER → 2021-03-27 | Outpatient (REF) | payer BC, MEDICAID ==
[2021-03-27 12:34] LABS: APPEARANCE, URINE CLOUDY (CLEAR); BACTERIA, URINE AUTO 1+ (NEGATIVE); BILIRUBIN, URINE AUTO NEGATIVE (NEGATIVE); BLOOD, URINE BLOOD NEGATIVE (NEGATIVE); COLOR, URINE YELLOW (YELLOW); GLUCOSE, URINE (UA) AUTO NEGATIVE (NEGATIVE); KETONE, URINE AUTO NEGATIVE (NEGATIVE); LEUKOCYTE ESTERASE, URINE AUTO 1+ (NEGATIVE); MUCUS, URINE SMALL (NEGATIVE); NITRITE, URINE AUTO NEGATIVE (NEGATIVE); PROTEIN, URINE AUTO NEGATIVE (NEGATIVE); RBC, URINE AUTO 0 /HPF (0-3); SPECIFIC GRAVITY URINE AUTO 1.014 (1.002-1.035); SQUAMOUS EPITHELIAL CELL UR AU 14 /HPF (0-6); UROBILINOGEN, URINE AUTO 0.2 mg/dL (0.0-2.0); WBC, URINE AUTO 3 /HPF (0-3)
[2021-03-27 13:08] LABS: TOTAL PROTEIN,RANDOM URINE 13.1 MG/DL (0.0-12.0)
[2021-03-27 13:13] LABS: C REACTIVE PROTEIN QUANTITATIV 2.22 MG/DL (0.00-0.30); PHOSPHORUS LEVEL 2.5 MG/DL (2.5-4.9); THYROID STIMULATING HORMONE 0.649 uIU/ML (0.358-3.740); TOTAL 25(OH) VITAMIN D 12.6 NG/ML (30.0-100.0)
== END ==
LOC: M SFHCRHEU 08:45
PROVIDERS: ATTEND Internal Medicine
DX: M06.4 Inflammatory polyarthropathy (principal); M79.10 Myalgia, unspecified site